=== PATIENT | female | born 1935 | race Caucasian/White ===

== ENCOUNTER 2017-04-04 18:29 | Emergency (ER) | payer OTHER, MEDICARE, BC ==
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
[2017-04-04 19:49] VITALS: BP 170/83
== END 2017-04-04 19:50 | disposition home or self-care (01) ==
LOC: ER 18:29
DX: S20.212A Contusion of left front wall of thorax, initial encounter; V46.1XXA Car passenger injured in collision with other nonmotor vehicle in nontraffic accident, initial encounter